=== PATIENT | male | born 1960 | race Two or more races ===

== ENCOUNTER 2018-07-11 06:19 | Inpatient (IN) | payer OTHER ==
[~2018-07-11] VITALS: Ht 162.6 cm; Wt 81.6 kg
[2018-07-11] VITALS (15 sets, daily range): BP systolic 109–145; BP diastolic 63–82
[~2018-07-11 06:19] MED LIST: CYCLOBENZAPRINE10 MG ORAL; LOSARTAN POTAS100 MG ORAL; METFORMIN HCL500 M1 ORAL; MOBIC15 MG ORAL; ceFAZolin sod 2 GM in D5W 55 ML IVP ONE
[2018-07-11] MEDS ORDERED: Zemuron 50mg/5ml Inj IV ONE (06:23)
[2018-07-11] MEDS ORDERED: Succinylcholine 20mg/ml 10ml vial ONE (06:44)
[2018-07-11] MEDS ORDERED: LR 1000ml 1,000 ML IVLG SCH (06:48)
[2018-07-11] MEDS ORDERED: Lidocaine 1% Plain 30 ml INJ ONE ×2 (06:51→12:46)
--- NOTE | 2018-07-11 06:51 | Immediate Post-Op Evaluation ---
Immediate Post-Op Evalulation Immediate Post-Op Evalulation Procedure: PSF C5-6, ACDF C5-6, C6-7 Date of Evaluation: Jul 11, 2018 Time of Evaluation: 15:30 IV Fluids: 1100 LR Blood Products: 0 Estimated Blood Loss: 150 Urinary Output: 300 Blood Pressure Systolic: 111 Blood Pressure Diastolic: 70 Pulse Rate: 106 Respiratory Rate: 16 O2 Sat by Pulse Oximetry: 100 Temperature (Fahrenheit): 97.2 Pain Score (1-10): 2 Nausea: No Vomiting: No Complications 0 Patient Status: awake, reacts, patent, extubated, none Dru Grams Ancef IV Given Within 1 Hr of Incision: Yes Time Given: 08:26 Pipe Arnold MD Jul 11, 2018 06:51
[2018-07-11] MEDS ORDERED: Sodium Chloride 10ml vial INJ ONE (06:52)
[2018-07-11] MEDS ORDERED: Lidocaine 1% MPF 10mg/ml 5ml ONE (06:52)
[2018-07-11] MEDS ORDERED: Metoclopramide 10mg/2ml Inj IVP PRN ×2 (07:00→15:00)
[2018-07-11] MEDS ORDERED: Meperidine 50mg/ml Inj(FOR RIGORS ONLY) IVP PRN (07:00)
[2018-07-11] MEDS ORDERED: Acetaminophen (Non formulary) 100 ML IV ONE (07:00)
[2018-07-11] MEDS ORDERED: fentaNYL 100 mcg/2 mL IV PRN (07:00)
[2018-07-11] MEDS ORDERED: HYDROcodone/Acetamin 7.5/325 tab ORAL PRN ×3 (07:00→17:30)
[2018-07-11] MEDS ORDERED: Midazolam 2mg/2ml Inj IVP PRN (07:00)
[2018-07-11] MEDS ORDERED: Atropine Sulfate 0.4mg/ml inj IVP PRN (07:00)
[2018-07-11] MEDS ORDERED: Hydromorphone 0.5mg/0.5ml inj IVP PRN (07:00)
[2018-07-11] MEDS ORDERED: Ketorolac 30mg Inj IV PRN ×2 (07:00)
[2018-07-11] MEDS ORDERED: oxyCODONE HCL/Acetaminophen 5/325mg ORAL PRN (07:00)
[2018-07-11] MEDS ORDERED: Norco 5mg/325mg tab ORAL PRN ×2 (07:00→17:30)
[2018-07-11] MEDS ORDERED: LORazepam Inj 2mg/ml 1ml IV PRN (07:00)
[2018-07-11] MEDS ORDERED: DiphenhydrAMINE 50mg/ml Inj IVP PRN (07:00)
[2018-07-11] MEDS ORDERED: Gelfoam Size TOPIC ONE ×2 (07:20→11:54)
[2018-07-11] MEDS ORDERED: Thrombin 5000 units TOPIC ONE ×5 (07:20→12:00)
[2018-07-11] MEDS ORDERED: Depo-Medrol 40mg Inj ONE (07:20)
[2018-07-11] MEDS ORDERED: Bupivacaine 0.5% Inj 30 ml vial INJ ONE (07:21)
[2018-07-11] MEDS ORDERED: Bacitracin 50000 Units Vial ONE (07:21)
[2018-07-11] MEDS ORDERED: Heparin 1000 units/ml 1ml Vial ONE (07:22)
[2018-07-11] MEDS ORDERED: Bacitracin Oint 15gm Tube TOPIC ONE (07:25)
[2018-07-11] MEDS ORDERED: Sterile Water Irrig 1000ml IRRIG ONE (07:30)
[2018-07-11] MEDS ORDERED: NS Irrig 1000ml ONE (07:30)
[2018-07-11] MEDS ORDERED: Neostigmine 1mg/ml 10ml Inj ONE (07:30)
[2018-07-11] MEDS ORDERED: LR 1000ml ONE (07:30)
[2018-07-11] MEDS ORDERED: Propofol 1,000mg/ 100ml btl IV ONE (07:30)
[2018-07-11] MEDS ORDERED: Heparin 5000 units/ml inj ONE (07:54)
[2018-07-11] MEDS ORDERED: Dexamethasone 4mg/ml vial ONE (08:04)
[2018-07-11] MEDS ORDERED: Bupivacaine w/Epi 0.5% 30ml Vial INJ ONE (09:00)
[2018-07-11] MEDS ORDERED: fentaNYL 100 mcg/2 mL IV ONE ×2 (09:07→12:15)
--- NOTE | 2018-07-11 09:15 | Anethesia Preoperative Eval ---
Anesthesia Pre-op PMH/ROS General Date of Evaluation: Jul 11, 2018 Time of Evaluation: 07:31 Anesthesiologist: Catalina ASA Score: ASA 3 Mallampati Score Class I : Soft palate, uvula, fauces, pillars visible Class II: Soft palate, uvula, fauces visible Class III: Soft palate, base of uvula visible Class IV: Only hard plate visible Mallampati Classification: Class II Surgeon: Elva Diagnosis: Neck Pain Surgical Procedure: PSF C5-6, ACDF C5-6, C6-7 Anesthesia History: none Social History: current smoker Family History: no anesthesia problems Allergies: Coded Allergies: No Known Allergies (Unverified , 07/11/18) Medications: see eMAR Patient NPO?: Yes NPO Date: Jul 11, 2018 NPO Time: 013 Past Medical History Cardiovascular: Reports: HTN Endocrine: Reports: DM Musculoskeletal/Integumentary: Reports: other - Cervical Spinal Cord Serverly Compromised. Other: obesity - BMI 31 Anesthesia Pre-op Phys. Exam Physician Exam Last Vital Signs Date Time Temp Pulse Resp B/P (MAP) Pulse Ox O2 Delivery O2 Flow Rate FiO2 07/11/18 06:50 Room Air 07/11/18 06:49 97.0 78 18 145/82 (103) 99 Constitutional: NAD Neurologic: CN 2-12 intact Cardiovascular: RRR Respiratory: CTA Gastrointestinal: S/NT/ND Airway Exam Mallampati Score: Class II MO: full ROM: limited Teeth: missing Dentures: upper, lower Anesthesia Pre-op A/P Risk Assessment & Plan Assessment: ASA 3 Plan: GA, SED, GlideScope Go, Post op Intubation. Status Change Before Surgery: No Pre-Antibiotics Dru Grams Ancef IV Given Within 1 Hr of Incision: Yes Time Given: 08:26 Pipe Arnold MD Jul 11, 2018 09:15
[2018-07-11] MEDS ORDERED: Phenylephrine 10mg/ml Vial ONE (09:51)
[2018-07-11] MEDS ORDERED: Glycopyrrolate 0.2mg/ml 1ml Vial ONE ×2 (10:21→13:03)
[2018-07-11] MEDS ORDERED: Milk of Magnesia 30ml Ud ORAL PRN (15:00)
[2018-07-11] MEDS ORDERED: Naloxone 0.4mg/ml Inj IVP PRN (15:00)
--- NOTE | 2018-07-11 15:55 | Diagnostic Imaging Report ---
Indication: Neck Pain Findings: Fluoroscopic images of the cervical spine were obtained. Localization images followed by anterior fusion and discectomy demonstrated at the levels of C5-6 and C6-7. IMPRESSION: Intraoperative imaging
--- NOTE | 2018-07-11 17:10 | NUR ---
NURSE NOTES: Patient arrived to unit via bed accompanied by RN. Received report from Yoselin RN. Patient is asleep but arousable to voice on arrival. No acute distress. On 3L NC. Anterior and posterior dressings clean and dry, posterior hemovac compressed. Guan to gravity drainage. Neuro check assessed, strength 5/5 bilateral hands, 5/5 bilateral feet. SCD's on. Patient placed on continuous pulseox. Side rails upx3, bed low and locked, call light in reach. Will continue to monitor.
[2018-07-11] MEDS ORDERED: HYDROmorphone 1mg/ml Carpuject SUBQ PRN (17:30)
[2018-07-11] MEDS: Docusate 100mg cap ORAL SCH (18:25)
[2018-07-11] MEDS: NS w/KCl 20mEq 1,000 ML IV SCH (18:25)
[2018-07-11] MEDS ORDERED: ceFAZolin sod 1 GM in D5W 55 ML IV SCH (19:00)
--- NOTE | 2018-07-11 19:14 | NUR ---
NURSE NOTES: Report received from BRAXTON Pittman. Patient alert, oriented. Bed in low position, locked, side rails up x3. Call light within reach.
--- NOTE | 2018-07-11 19:45 | NUR ---
HAND-OFF: Report given to Niranjan LIMON. Patient in stable condition.
--- NOTE | 2018-07-11 19:52 | Cardiology Progress Note ---
Assessment/Plan Assessment/Plan [id number] diabtic clear advance as tolerated resume Glucophage tomorrow cozaar with hold parameter as of tomorrow dvt ppx with pneumatic stocking home when eats and is able to walked use BR - Objective Last 24 Hour Vital Signs Date Time Temp Pulse Resp B/P (MAP) Pulse Ox O2 Delivery O2 Flow Rate FiO2 07/11/18 17:10 Nasal Cannula 3.0 Nasal Cannula 3.0 07/11/18 16:38 98 19 119/70 99 Nasal Cannula 3 07/11/18 16:10 98 19 116/70 99 Nasal Cannula 3 07/11/18 15:55 101 19 117/65 99 Simple Mask 6 07/11/18 15:50 105 19 114/66 99 Simple Mask 6 07/11/18 15:45 102 19 115/67 99 Simple Mask 6 07/11/18 15:40 101 19 117/65 99 Simple Mask 6 07/11/18 15:29 104 21 123/74 100 Simple Mask 6 07/11/18 15:24 100 14 119/73 100 Simple Mask 6 07/11/18 15:19 97.2 104 12 123/63 100 Simple Mask 6 07/11/18 15:17 106 16 100 07/11/18 06:50 Room Air 07/11/18 06:49 97.0 78 18 145/82 (103) 99 Intake and Output 07/10/18 07/11/18 19:00 07:00 # Voids 1 Alli Pepe MD Jul 11, 2018 19:52
[2018-07-11] MEDS: HYDROmorphone 1mg/ml Carpuject IVP PRN (20:31)
--- NOTE | 2018-07-11 21:30 | NUR ---
NURSE NOTES: Patient alert, oriented. Bed lowest position, locked. Dressing on back of neck intact and dry. Anterior neck dressing intact and dry. Icepacks on both sites. Hemovac in place, compressed. No distress noted, states pain decreased after pain med. SCD in place. Guan intact, draining well. Nephew at bedside, will continue to monitor.
[2018-07-11] MEDS: NovoLOG Insulin Flexpen SUBQ SCH (21:51)
[2018-07-11] MEDS: ceFAZolin sod 1 GM in D5W 55 ML IV SCH (23:35)
[2018-07-12] VITALS: BP 127/81
[2018-07-12] MEDS: HYDROmorphone 1mg/ml Carpuject IVP PRN ×2 (00:50→06:03)
[2018-07-12 04:00] VITALS: BP 127/79
[2018-07-12] MEDS: NS w/KCl 20mEq 1,000 ML IV SCH ×2 (04:38→14:41)
[2018-07-12] MEDS: ceFAZolin sod 1 GM in D5W 55 ML IV SCH ×2 (06:37→15:32)
[2018-07-12] MEDS: NovoLOG Insulin Flexpen SUBQ SCH ×4 (06:45→20:38)
--- NOTE | 2018-07-12 07:05 | NUR ---
HAND-OFF: Report given to BRAXTON Osullivan. patient in stable condition.
[2018-07-12 07:12] LABS: HEMOGLOBIN 13.9 G/DL (14.2-18.0); MEAN CORPUSCULAR VOLUME 88 FL (80-99); PLATELET COUNT 236 K/UL (150-450); RED BLOOD COUNT 4.54 M/UL (4.70-6.10); RED CELL DISTRIBUTION WIDTH 11.3 % (11.6-14.8); WHITE BLOOD COUNT 20.6 K/UL (4.8-10.8)
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
[2018-07-12 08:00] VITALS: BP 132/85
--- NOTE | 2018-07-12 08:00 | NUR ---
NURSE NOTES: Received report from Niranjan LIMON, pt a/a/o x4 laying in bed in comfortable position with no signs of distress, Hemovac in place draining well, total out put during the material handler 2nd shift: 45ml. Guan cath to gravity, total out put: 1150ml. surgical dressing dry and intact. pt is on cervical/mechanical soft diet, pt is tolerating well with no n/v. call light within reach, bed in lowest position, side rales up x2. I will f/u as needed. PLAN: for PT eval and tx today.
[2018-07-12] MEDS: metFORMIN 500mg tab ORAL SCH ×2 (08:28→17:13)
[2018-07-12] MEDS: Losartan 25mg tab ORAL SCH (08:29)
[2018-07-12] MEDS: Docusate 100mg cap ORAL SCH ×2 (08:29→17:13)
[2018-07-12 12:00] VITALS: BP 126/77
--- NOTE | 2018-07-12 15:00 | NUR ---
NURSE NOTES: pt ambulated with PT and the use of FWW x2 around the unit. - Guan cath removed. RN will f/u post void. urinal at bedside. call light within reach. I will f/u as needed.
--- NOTE | 2018-07-12 15:53 | NUR ---
PT Note PT eval completed, treatment initiated. Patient needs PT services to instruct on proper body mechanics to improve his safety in mobility and gait. Addendum: 07/12/18 at 1555 by APRYL PEÑA PT Amended: Links added.
[2018-07-12 16:00] VITALS: BP 139/83
--- NOTE | 2018-07-12 16:33 | General Progress Note ---
Subjective ROS Limited/Unobtainable: Yes Constitutional: Reports: no symptoms HEENT: Reports: no symptoms Cardiovascular: Reports: no symptoms Respiratory: Reports: no symptoms Genitourinary: Reports: no symptoms Neurologic/Psychiatric: Reports: no symptoms Endocrine: Reports: no symptoms Hematologic/Lymphatic: Reports: no symptoms Allergies: Coded Allergies: No Known Allergies (Unverified , 07/11/18) Subjective Doing well post op. UE and LE much stronger. Neck pain mild to mod without extremity symptoms AVSS A and O times 3 inc post and ant cdi hv pulled no erythema 5/5 motor in the UE and gulshan LE 1 beat of clonus Hoffmans neg calves soft and nt speech wnl POD 1 doing well oob and pt c collar dc sarkis fu 7 to 10 days medicine following Objective Last 24 Hour Vital Signs Date Time Temp Pulse Resp B/P (MAP) Pulse Ox O2 Delivery O2 Flow Rate FiO2 07/12/18 16:00 99.8 97 20 139/83 (101) 94 07/12/18 15:09 98.4 07/12/18 12:00 98.4 92 20 126/77 (93) 94 07/12/18 09:00 Room Air 07/12/18 08:29 132/85 07/12/18 08:00 98.4 93 20 132/85 (101) 94 07/12/18 07:45 Nasal Cannula 2.0 28 07/12/18 07:45 98 Nasal Cannula 2.0 28 07/12/18 04:00 98.9 89 17 127/79 (95) 96 07/12/18 00:50 Room Air 07/12/18 00:50 78 18 95 07/12/18 00:00 98.5 83 20 127/81 (96) 99 07/11/18 23:49 Nasal Cannula 2.0 28 07/11/18 23:49 97 Nasal Cannula 2.0 28 07/11/18 23:30 Nasal Cannula 2.0 07/11/18 21:00 Nasal Cannula 2.0 07/11/18 20:00 98.0 93 18 129/81 (97) 97 07/11/18 19:10 98.7 89 20 120/79 (93) 98 07/11/18 18:10 97.7 97 17 120/77 (91) 99 07/11/18 17:40 98.0 94 20 115/75 (88) 98 07/11/18 17:10 Nasal Cannula 3.0 Nasal Cannula 3.0 07/11/18 17:10 97.9 96 18 109/73 (85) 97 07/11/18 16:38 98 19 119/70 99 Nasal Cannula 3 Intake and Output 07/11/18 07/12/18 19:00 07:00 Intake Total 2350 ml 1700 ml Output Total 900 ml 1195 ml Balance 1450 ml 505 ml Intake Oral 50 ml 600 ml IV Total 2300 ml 1100 ml Output Urine Total 750 ml 1150 ml Drainage Total 0 ml 45 ml Estimated Blood Loss 150 ml Laboratory Tests 07/12/18 05:55: White Blood Count 20.6H, Red Blood Count 4.54L, Hemoglobin 13.9L, Hematocrit 40.0L, Mean Corpuscular Volume 88, Mean Corpuscular Hemoglobin 30.6, Mean Corpuscular Hemoglobin Concent 34.7, Red Cell Distribution Width 11.3L, Platelet Count 236, Mean Platelet Volume 7.3, Neutrophils (%) (Auto) , Lymphocytes (%) (Auto) , Monocytes (%) (Auto) , Eosinophils (%) (Auto) , Basophils (%) (Auto) , Differential Total Cells Counted 100, Neutrophils % ( Manual) 79H, Lymphocytes % (Manual) 16L, Monocytes % (Manual) 5, Eosinophils % ( Manual) 0, Basophils % (Manual) 0, Band Neutrophils 0, Platelet Estimate Adequate, Platelet Morphology Normal, Red Blood Cell Morphology Normal Height (Feet): 5 Height (Inches): 4.00 Weight (Pounds): 180 Philipp Stevenson MD Jul 12, 2018 16:33
--- NOTE | 2018-07-12 19:48 | NUR ---
HAND-OFF: Report given to Lydia LIMON, pt in stable condition. - pt was able to void after removal of Guan cath.
--- NOTE | 2018-07-12 19:49 | NUR ---
NURSE NOTES: Pt received awake,alert and asking for assistance to the restroom having to urinate, pt urinated and will dc IV fluids order. able to make needs known, asking for something for pain, call light within reach, bed in low position, soft collar around neck, will continue to monitor.
[2018-07-12 20:00] VITALS: BP 135/86
--- NOTE | 2018-07-12 20:30 | NUR ---
NURSE NOTES: Pt trip removed from his room, he did not eat any of his dinner. I explained the importance of him eating and that he could try some pudding and he still declined, he stated he understood but wants to go to sleep because he has not slept for 2 days. I was able to offer him some apple juice to drink and he accepted it.
--- NOTE | 2018-07-12 22:18 | Cardiology Progress Note ---
Assessment/Plan Assessment/Plan continue supportive treatment Subjective Subjective resting in bed, was ambulating a little bid, still has severe anterior neck discomfort and swallowing discomfort Objective Last 24 Hour Vital Signs Date Time Temp Pulse Resp B/P (MAP) Pulse Ox O2 Delivery O2 Flow Rate FiO2 07/12/18 21:00 Room Air 07/12/18 20:00 99.5 97 20 135/86 (102) 94 07/12/18 16:00 99.8 97 20 139/83 (101) 94 07/12/18 15:09 98.4 07/12/18 12:00 98.4 92 20 126/77 (93) 94 07/12/18 09:00 Room Air 07/12/18 08:29 132/85 07/12/18 08:00 98.4 93 20 132/85 (101) 94 07/12/18 07:45 Nasal Cannula 2.0 28 07/12/18 07:45 98 Nasal Cannula 2.0 28 07/12/18 04:00 98.9 89 17 127/79 (95) 96 07/12/18 00:50 Room Air 07/12/18 00:50 78 18 95 07/12/18 00:00 98.5 83 20 127/81 (96) 99 07/11/18 23:49 Nasal Cannula 2.0 28 07/11/18 23:49 97 Nasal Cannula 2.0 28 07/11/18 23:30 Nasal Cannula 2.0 General Appearance: no apparent distress EENT: PERRL/EOMI Neck: other - right anterior icision after for srugery Rhythm: NSR Cardiovascular: normal peripheral pulses Respiratory/Chest: lungs clear Abdomen: soft Extremities: normal range of motion Intake and Output 07/11/18 07/12/18 19:00 07:00 Intake Total 2350 ml 1700 ml Output Total 900 ml 1195 ml Balance 1450 ml 505 ml Intake Oral 50 ml 600 ml IV Total 2300 ml 1100 ml Output Urine Total 750 ml 1150 ml Drainage Total 0 ml 45 ml Estimated Blood Loss 150 ml Laboratory Tests Test 07/12/18 05:55 White Blood Count 20.6 K/UL (4.8-10.8) H Red Blood Count 4.54 M/UL (4.70-6.10) L Hemoglobin 13.9 G/DL (14.2-18.0) L Hematocrit 40.0 % (42.0-52.0) L Mean Corpuscular Volume 88 FL (80-99) Mean Corpuscular Hemoglobin 30.6 PG (27.0-31.0) Mean Corpuscular Hemoglobin Concent 34.7 G/DL (32.0-36.0) Red Cell Distribution Width 11.3 % (11.6-14.8) L Platelet Count 236 K/UL (150-450) Mean Platelet Volume 7.3 FL (6.5-10.1) Neutrophils (%) (Auto) % (45.0-75.0) Lymphocytes (%) (Auto) % (20.0-45.0) Monocytes (%) (Auto) % (1.0-10.0) Eosinophils (%) (Auto) % (0.0-3.0) Basophils (%) (Auto) % (0.0-2.0) Differential Total Cells Counted 100 Neutrophils % (Manual) 79 % (45-75) H Lymphocytes % (Manual) 16 % (20-45) L Monocytes % (Manual) 5 % (1-10) Eosinophils % (Manual) 0 % (0-3) Basophils % (Manual) 0 % (0-2) Band Neutrophils 0 % (0-8) Platelet Estimate Adequate Platelet Morphology Normal Red Blood Cell Morphology Normal Leanna Becker MD Jul 12, 2018 22:18
[2018-07-13] VITALS: BP 146/89
--- NOTE | 2018-07-13 00:20 | NUR ---
NURSE NOTES: I went to take pt vitals, he was in bed with SCDs off, I asked him if he got up and he said yes he went to the restroom. I told him that I would put his SCDs back on and he said not yet, please cover me with a blanket. will follow up with putting SCDs back on
[2018-07-13 04:00] VITALS: BP 140/77
[2018-07-13] MEDS: NovoLOG Insulin Flexpen SUBQ SCH ×2 (06:29→11:42)
--- NOTE | 2018-07-13 07:25 | NUR ---
HAND-OFF: Report given to BRAXTON Osullivan.
--- NOTE | 2018-07-13 07:33 | NUR ---
NURSE NOTES: Received report from Lydia LIMON, pt a/a/ox4 laying in bed with no signs of distress or other issues at this time. pt in a post cervical mechanical soft diet. pt is tolerating well with no n/v. IV on right upper hand gauge #22 heplock. surgical dressing dry and intact. call light within reach, bed in lowest position, side rales up x2. I will f/u as needed. plan: to d/c home today. pt will call for transportation.
[2018-07-13 08:22] VITALS: BP 145/86
[2018-07-13] MEDS: Losartan 25mg tab ORAL SCH (08:29)
[2018-07-13] MEDS: Docusate 100mg cap ORAL SCH (08:29)
[2018-07-13] MEDS: metFORMIN 500mg tab ORAL SCH (08:29)
[2018-07-13] MEDS ORDERED: Flu Vaccine (Alfuria) for Pts Less than 65 Years old IM ONE (09:15)
--- NOTE | 2018-07-13 10:08 | 48 Hour Post Anesthesia Eval ---
Post Anesthesia Evaluation Procedure: PSF C5-6, ACDF C5-6, C6-7 Date of Evaluation: Jul 13, 2018 Time of Evaluation: 10:08 Blood Pressure Systolic: 158 0: 86 Pulse Rate: 67 Respiratory Rate: 14 O2 Sat by Pulse Oximetry: 96 Airway: patent Nausea: No Vomiting: No Hydration Status: adequate Cardiopulmonary Status: stable Mental Status/LOC: patient returned to baseline Follow-up Care/Observations: na Post-Anesthesia Complications: none Follow-up care needed: N/A Caridad Roberto CRNA Jul 13, 2018 10:08
[2018-07-13 12:00] VITALS: BP 132/87
[2018-07-13] MEDS ORDERED: NORCO 10-325 T1 EACH ORAL (12:44)
[2018-07-13] MEDS ORDERED: Tubing IV Secondary IV ONE (13:25)
--- NOTE | 2018-07-13 13:45 | NUR ---
NURSE NOTES: Received orders for dc home. Discharge instructions and belongings list given to patient. Surgical dressing dry and intact. RN spoke with pt's nephew to notify that patient is ready for discharge. pts nephew will arrange [facility] for picker. pt left the floor via w/c with no signs distress or other issues at this time. I will f/u as needed.
--- NOTE | 2018-07-14 11:48 | Discharge Summary ---
Discharge Summary Hospital Course Date of Admission Jul 11, 2018 at 06:19 Date of Discharge Jul 13, 2018 at 13:26 Admitting Diagnosis cervical myeloradiculopathy Reason for Hospitalization: elective surgery HPI Annamarie Scruggs is a 57 year old male who was admitted on Jul 11, 2018 at 06:19 for Cervical Myeloradiculopathy Consultations Dr Pepe cardio /IM Procedures s/p 07/[address] Stevenson 1. Laminectomy, C5. 2. Laminectomy, C6. 3. Hemilaminectomy, C4. 4. Posterolateral arthrodesis at C5-C6 and C6-C7, bilateral. 5. Anterior cervical diskectomy and decompression with interbody fusion at C5-C6 and C6-C7. 6. Anterior cervical instrumentation at C5-C6 and C6-C7. 7. Use of allograft and local autograft for anterior and posterior arthrodesis, including bone marrow aspirate concentrate for anterior fusion. 8. Insertion of biomechanical device at C5-C6 and C6-C7. 9. Right-sided anterior iliac bone marrow aspiration. Hospital Course status post surgery course of recovery uneventful initially IV fluids s/p perioperative antibiotics neurovascular status closely monitored, stable ( motor strength 5/5 BUE , intact sensation) incision clean , dry , and intact with dressing initially Hemovac, output closely monitored, discontinued cervical collar on pain management addressed hemodynamically stable ambulated with PT DVT prophylaxis provided with SCD ( while in the bed) use of incentive spirometry was encouraged while in the bed fall precautions maintained; safe for ambulation tolerated diet , IV fluids discontinued Cepacol lozenges provided for comfort GI prophylaxis provided antiemetics were on board as needed blood pressure was managed with ARB and remained stable blood sugar was closely monitored and managed with metformin and sliding scale of insulin as needed voided freely bowel regimen instituted patient was stable for discharge discharge instructions provided use of cervical collar reinforced follow up with surgeon in 7-10 days as advsied by surgeon FINAL DIAGNOSES Severe spinal cord compression with severe spinal stenosis, central stenosis, and foraminal stenosis at C5-C6 with herniated nucleus pulposus and moderate central canal stenosis with foraminal stenosis at [id number] myeloradiculopathy s/p Posterolateral arthrodesis at C5-C6 and C6-C7, bilateral. Anterior cervical diskectomy and decompression with interbody fusion at C5-C6 and C6-C7. HTN DM Discharge Medications Continued Medications: Hydrocodone Bit/Acetaminophen 10-325* (Pound 10-325*) 1 Each Tablet 1 TAB ORAL Q4H PRN for For Pain, #40 TAB 0 Refills (This prescription has been renewed) PRN PAIN Discharge Condition Upon Discharge: stable Discharge Disposition Patient was discharged to Home (01) Discharge Instructions Discharge Instructions Special Instructions I have been assigned to complete a D/C Summary on this account. I was not involved in the patient management Margarita Camarillo NP Jul 14, 2018 11:48
--- NOTE | 2018-07-14 23:45 | Operative Note - Dictated ---
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 PROCEDURES PERFORMED: 1. Laminectomy, C5. 2. Laminectomy, C6. 3. Hemilaminectomy, C4. 4. Posterolateral arthrodesis at C5-C6 and C6-C7, bilateral. 5. Anterior cervical diskectomy and decompression with interbody fusion at C5-C6 and C6-C7. 6. Anterior cervical instrumentation at C5-C6 and C6-C7. 7. Use of allograft and local autograft for anterior and posterior arthrodesis, including bone marrow aspirate concentrate for anterior fusion. 8. Insertion of biomechanical device at C5-C6 and C6-C7. 9. Right-sided anterior iliac bone marrow aspiration. SURGEON: Philipp Stevenson M.D. TIGHTENING MACHINE OPERATOR: Aman Zuñiga M.D. ANESTHESIA: General endotracheal anesthesia. ANESTHESIOLOGIST: Pipe Arnold M.D. INTRAOPERATIVE FINDINGS: Severe spinal cord compression with severe spinal stenosis, central stenosis, and foraminal stenosis at C5-C6 with herniated nucleus pulposus and moderate central canal stenosis with foraminal stenosis at C6-C7. ESTIMATED BLOOD LOSS: Total anterior and posterior was 100 mL. FLUIDS: 1 liter of crystalloid. INDICATIONS: This was a pleasant gentleman who presented for myeloradiculopathy with difficulty with ambulation, fine motor coordination, upper motor neuron signs and with severe pain. Option for above treatment was given. Risks, alternatives, and benefits were discussed with the patient at length. Risks include, but are not limited to, anesthesia complications including , medical complications including liver, kidney, cardiopulmonary deficits, bleeding, infection, neurovascular injury, CSF leak, nerve root injury, pars fracture, instability, reherniation, continued symptoms, paralysis, as well as other complications. The patient understood and wished to proceed. DESCRIPTION OF OPERATION: The patient was brought into the operating room supine on a stretcher. Subsequently, appropriate IV lines were placed and 2 g of Ancef was administered by the anesthesiologist. A surgical time-out was called, and anesthesia was induced. The patient was intubated without neck flexion or extension. Sequential compressive devices were placed in the lower extremities. A Guan was placed under sterile conditions. SSEP neurophysiological leads including MEP and EMG leads were placed and baseline recordings were done before keeping the patient to the prone position for the posterior portion of the operation. Subsequently, the blood pressure was well controlled and Courtney tong retractors were set into place over the equator of the head, just cephalad to the top of the top of the ear. Soft temporal bone was avoided. Once this was done, the patient was gently turned prone onto the Garth frame table with gel pad supporting the chest. The neck was attached to the Courtney tongs and subsequently to the retractor on the bed in neutral position and the chin and head were found to be free and clear of any compression. Once this was done, preoperative fluoroscopy was used to plan the incision and indelible marker was used to buddy the midline over the C4, C5 and C6 vertebral bodies. At this point, the posterior neck was prepped and draped in the usual sterile fashion with alcohol, chlorhexidine scrub, ChloraPrep, and Ioban draping. My administrative personal assistant and myself were prepped and gowned as well and at this point, intraoperatively sterilely draped microscope was brought into the field for the operation. A skin incision was made with a #15 scalpel and subperiosteal dissection was carried out at C5 and C6 and the caudal portion of C4. The C4-C5 facet joint capsule was left undisturbed. Once this was done, hemostasis was achieved and attention was first diverted to doing the laminectomy. The interval between the lateral mass and the lamina was found and with a high-speed Midas Omid drill, the C5 and C6 laminae were drilled to the level of the dura. A Microsect 2 curette was used to release ligamentum and any soft tissues between the dura and the lamina. This was done bilaterally. Subsequently, a hemilaminectomy of the caudal portion of C4 was also done to fully decompress the spinal cord as well as to safely remove en block of the C5 bilateral lamina and C6 bilateral lamina and at this point, the interspinous ligament and the ligamentum flavum was carefully released with #2 through #5 Kerrison punches and the C5 and C6 laminae were removed with an en bloc with a no-touch technique and once the laminae were removed, the dura was found to be decompressed and free and in excellent position without compression. The dural was bulging and fear and had migrated poseriorly in safe and optimal fashion. There was no bleeding. Please note that 30 minutes before the case, 10 mg of dexamethasone was given to the patient IV by the anesthesiologist. Also, please note that the SSEP and MEP recordings improved by approximately 30% by the end of the anterior-posterior case. When we first started, there was approximately decrease in amplitude about 50%. Once the laminectomies were completed, the wounds were copiously irrigated with triple antibiotic solution. Hemostasis was achieved. Once the laminectomy was completed, at the C5-C6 and C6-C7 facet joints were identified and the cartilage in between the facet joints were decorticated and local autograft from the lamina were fashioned and contoured for placement inside of the C5-C6 and C6-C7 facet joints bilaterally for posterolateral fusions. These were cancellous and wedged shaped square shaped autografts that were placed into the facet joint once they were decorticated for recreation of disk height and for a posterolateral arthrodesis at C5-C6 and C6-C7. A medium Hemovac drain was placed subfascially. The dorsal cervical fascia was closed with #1 Vicryl sutures in a watertight interrupted fashion. The subdermal and subcuticular layers were closed with 2-0 Vicryl sutures. Dermabond was placed to close the skin. Sterile dressing and tape was placed. All sponge, needle, and instrument counts were correct. A C-collar was placed and at this point, the patient remained intubated and the Courtney tongs were released from the table and the patient was moved at a unit onto another Garth frame table for the anterior portion of the operation. SSEP and MEP remained stable. The patient remained stable. Conference was done with the anesthesiologist, Dr. Arnold, and the decision was made to proceed with the anterior portion of the surgery as the patient remained hemodynamically stable and neurovascularly stable. Once this was accomplished, now attention was diverted to the anterior portion of the case. The right hip was marked out and a interscapular roll was placed. A gentle lordosis was given to the cervical spine and the arms were tucked by the side. All bony prominences were well padded. Guan remained in good position and was continuing to fill with urine and at this point, the right side of the neck in the anterior crease was marked out with the aid of lateral fluoroscopy. The neck was prepped and draped in usual sterile fashion with alcohol, chlorhexidine scrub, ChloraPrep, and at this point, me and my administrative personal assistant were re-prepped and gowned and attention was first diverted to the right iliac crest. With two fingerbreadths behind the anterior superior iliac spine, a Jamshidi needle was placed in three different locations within the iliac bone and 10 mL at each location of bone marrow was aspirated for a total of 30 mL and was passed off for concentration via the centrifuge for stem cells. Now, a horizontal incision was carried out on anterior right side of the neck. A approach to the prevertebral fascia was taken between the sternocleidomastoid and the strap muscles. The neurovascular structures were saved and at this point, gun perforator retractors were set into place. Once the longus coli was subperiosteally dissected and a spinal needle was placed at this level and the C5-C6 and C6 levels were positively identified via lateral flouroscopy. Now, attention was diverted to removing the osteophytes over C5-C6, this was done with the rongeur and a #15 blade a box incision was made into the anterior annulus and with straight and curved curette, #1, #2, #3 Kerrison punches, a radical diskectomy entailed. All disk material was removed. There was a very large disk herniation at C5-C6 causing severe compression of the spinal cord, severe stenosis centrally, lateral recess and foraminal stenosis for the exiting C6 nerve roots. This was carefully removed with Microsect 2 curette, the PLL was also released and attention was now diverted to a Valsalva. Valsalva at 40 mmHg was done. There was no CSF leak. Local bone was harvested from the vertebral body and this was later used for local autograft for the biomechanical devices. Now back to the anterior portion of the surgery. Once full decompression was done at C5-C6, retractors were moved to the C6-C7 level and with the same instruments, a radical diskectomy was accomplished. Endplate cartilage was removed and endplate bone was well preserved. The PLL was removed. There was a disk herniation at C6-C7 causing impingement of the neural elements with foraminal stenosis because of the C7 nerve bilaterally. We will decompress this via a foraminotomy. Valsalva was done at 40 mmHg. There was no CSF leak. Complete decompression of the central canal lateral recess and foramina was assured and once this was accomplished, trials from the [employer]af cervical system were used and a 7 mm in height by 16.5 mm x 14 mm at 7 degree lordosis implant were chosen, was packed with bone marrow aspirate concentrate allograft and local autograft and tamped into place at C5-C6 and C6-C7 with excellent apposition against the endplates and good positioning in a stable position for the biomechanical devices. Now, a [place] plate was chosen measuring 30 mm, which was an RDI [place] plate and was fixed to the anterior surface of the C5, C6, C7 vertebral bodies at C5 one 4.5 x 16 mm screw, one 4.0 x 16 mm self-drilling screw. The screw had excellent purchase and sat below the locking mechanism of the plate well. At C6, two screws were used as well. These were 14 mm self-drilling screws x 4.0 and at C7, two 14 mm x 4.0 self-drilling screws were placed. These two had excellent purchase. At this point. Final AP and lateral fluoroscopy was done. Instrumentation was found to be in acceptable position. All sponge, needle, and instrument counts were correct. Hemostasis was achieved with minimal bleeding and at this point, attention was diverted to closure. The platysma was closed with 3-0 Vicryl sutures. The subcuticular layer was closed with 4-0 Monocryl sutures. Sterile Dermabond was placed. Sterile dressing tape was placed. All sponge, needle, and the counts were correct. Sterile dressing was also placed over the right hip. C-collar was placed. A conference was done with the anesthesiologist and decision was made. The patient was stable enough to extubate and the patient was extubated in stable condition, was found to be neurovascularly intact, was taken to the recovery room in stable condition and was sent to the floor for monitoring and admission to the hospital. Philipp Stevenson M.D. DR: CECILE JOB#: [id number] CC: [id number]
== END 2018-07-13 13:26 | disposition home or self-care (01) | DRG 455 ==
LOC: SDSOVERFLO 06:19 → 3E 17:10
PROC: 0RG20A0 Fusion of 2 or more Cervical Vertebral Joints with Interbody Fusion Device, Anterior Approach, Anterior Column, Open Approach (ICD-10-PCS; principal; 2018-07-11 07:30)
PROC: 0RB30ZZ Excision of Cervical Vertebral Disc, Open Approach (ICD-10-PCS; principal; 2018-07-11 07:30)
PROC: 0RG2071 Fusion of 2 or more Cervical Vertebral Joints with Autologous Tissue Substitute, Posterior Approach, Posterior Column, Open Approach (ICD-10-PCS; principal; 2018-07-11 07:30)
PROC: 01N10ZZ Release Cervical Nerve, Open Approach (ICD-10-PCS; principal; 2018-07-11 07:30)
PROC: 07DR3ZZ Extraction of Iliac Bone Marrow, Percutaneous Approach (ICD-10-PCS; principal; 2018-07-11 07:30)
DX: M50.022 Cervical disc disorder at C5-C6 level with myelopathy (principal); M48.02 Spinal stenosis, cervical region; V89.2XXS Person injured in unspecified motor-vehicle accident, traffic, sequela; E11.9 Type 2 diabetes mellitus without complications; I10 Essential (primary) hypertension; G89.18 Other acute postprocedural pain
CPT/HCPCS: 36415; 72040; 76000; 82962; 85007; 85025; 86850; 86900; 86901; 87081; 90686; 94003; 94150; 94760; J1815; J2370; J2405; J2710